=== PATIENT | female | born 1940 | race Caucasian/White ===

== ENCOUNTER 2017-07-31 08:48 | Day surgery (SDC) | payer OTHER, BC ==
[2017-07-30 11:41] VITALS: BMI 31.9
[2017-07-31] MEDS ORDERED: PROPOFOL 20 ML ONE ×2 (09:29)
[2017-07-31 10:28] VITALS: TEMP 97.6
[2017-07-31 11:24] VITALS: BP 117/68; PULSE 62
--- NOTE | 2017-08-02 15:44 | PATH ---
Surgical Pathology Report Patient Name: TREY BASS [facility]. Rec. #: [id number] /Age/Gender: 1940 (Age: 77) / F Account: [id number] Location: U-ENDOSCOPY Taken: 07/31/2017 Received: 07/31/2017 Reported: 08/02/2017 Physicians: Abida Villeda M.D. Specimen(s) Received A: BX POLYP RECTUM B: BX POLYP CECUM C: BX POLYPS SIGMOID Clinical History Preoperative diagnosis: Screening, colon polyps surveillance Postoperative diagnosis: Colon polyps, diverticulosis Final Diagnosis A. COLON, RECTUM, BIOPSY: HYPERPLASTIC POLYP. B. COLON, CECUM, BIOPSY: TUBULAR ADENOMA. C. COLON, SIGMOID, BIOPSY: HYPERPLASTIC POLYP. Electronically Signed Ganesh Dumont M.D. Gross Description A. Received in formalin, labeled "biopsy polyps rectum" are 3 torres, irregular portions of soft tissue averaging 0.2 cm. in greatest dimension. The specimens are submitted in toto in one cassette. B. Received in formalin, labeled "biopsy cecum polyp" are 2 torres, irregular portions of soft tissue averaging 0.4 cm. in greatest dimension. The specimens are submitted in toto in one cassette. C. Received in formalin, labeled "biopsy polyp sigmoid" are 3 torres, irregular portions of soft tissue averaging 0.3 cm. in greatest dimension. The specimens are submitted in toto in one cassette. /07/31/2017 saudi07/31/2017
== END 2017-07-31 11:28 | disposition home or self-care (01) ==
LOC: JASU-ENDO 08:48
PROVIDERS: ATTEND Internal Medicine Gastroenterology
PROC: 0DBE8ZX Excision of Large Intestine, Via Natural or Artificial Opening Endoscopic, Diagnostic (ICD-10-PCS; 2017-07-31)
PROC: 0DBP8ZX Excision of Rectum, Via Natural or Artificial Opening Endoscopic, Diagnostic (ICD-10-PCS; principal; 2017-07-31 09:45)
DX: Z86.010 Personal history of colon polyps (principal); K59.00 Constipation, unspecified; K63.5 Polyp of colon; K62.1 Rectal polyp; K57.30 Diverticulosis of large intestine without perforation or abscess without bleeding
CPT/HCPCS: 88305-TC

== ENCOUNTER 2019-03-29 15:29 | Emergency (ER) | payer OTHER, BC ==
[2019-03-29 15:50] VITALS: BP 134/82; PULSE 84; TEMP 98; BMI 33.5
--- NOTE | 2019-03-29 16:11 | PDOC ---
History of Present Illness - General Chief Complaint: Pain, Acute Stated Complaint: SHOULDER INJURY Time Seen by Provider: 03/29/19 16:11 - History of Present Illness Initial Comments: 03/29/19 16:19 78yo F hx HTN BIBA with L shoulder pain s/p mechanical fall from standing onto L shoulder at approx 1500. Pt was in [place] prior to fall. Pt was at [place] and went to sit on swivel chair and it swiveled in other direction and pt fell onto L shoulder "hard", witnessed by friend. Pt immediately felt L shoulder and upper arm pain, worse with movement, constant, unchanging, sharp type, severe, has not tried any pain medicatons, was unable to stand up on own due to shoulder pain. Denies FOOSH, head injury, neck injury or pain, back injury or pain, other injuries, wrist pain, elbow pain, hand or finger pain, CP, palpitations, dizziness, vertigo, confusion, disorientation, syncope, seizure- like movements, incontinence, tongue-biting, LOC, hx frequent falls, blood thinner use, numbness, tingling, weakness, fever, chills, fatigue, headache, vision changes, shortness of breath, cough, leg swelling, abdominal pain, blood in stool, diarrhea, constipation, nausea, vomiting, dysuria, hematuria. Past History - Past Medical History Allergies/Adverse Reactions: Allergies Allergy/AdvReac Type Severity Reaction Status Date / Time No Known Allergies Allergy Verified 03/29/19 15:49 Home Medications: Ambulatory Orders Metoprolol Tartrate [Lopressor -] 25 mg PO DAILY 02/21/12 Olmesartan/Hydrochlorothiazide [Benicar Hct 40-25 mg Tablet] 1 each PO DAILY 22/06 Amlodipine Besylate [Norvasc -] 10 mg PO DAILY 07/30/17 Oxycodone HCl/Acetaminophen [Percocet 5-325 mg Tablet] 1 tab PO Q8H PRN #12 tablet MDD 3 tabs 03/29/19 Anemia: No Asthma: No Cancer: No Cardiac Disorders: No CVA: No COPD: No CHF: No Dementia: No Diabetes: No GI Disorders: Yes Disorders: No HTN: Yes Hypercholesterolemia: Yes Kidney Stones: Yes Liver Disease: No Seizures: No Thyroid Disease: Yes - Surgical History Abdominal Surgery: Yes (Tubal Ligation, LAPAROTOMY DUE TO HEMORRHAGE) Appendectomy: No Cardiac Surgery: No Cholecystectomy: No Lung Surgery: No Neurologic Surgery: No Orthopedic Surgery: Yes (HIP SURGERY LT) - Immunization History Immunization Up to Date: No - Psycho Social/Smoking Cessation Hx Smoking Status: No Smoking History: Unknown if ever smoked Have you smoked in the past 12 months: No Number of Cigarettes Smoked Daily: 0 If you are a former smoker, when did you quit?: 1967 Information on smoking cessation initiated: No Hx Alcohol Use: No Drug/Substance Use Hx: No Substance Use Type: None Hx Substance Use Treatment: No Review of Systems - Review of Systems Comments:: 03/29/19 16:19 Constitutional: Negative for chills, fever, fatigue, diaphoresis. HENT: Negative for sore throat, rhinorrhea, congestion. Eyes: Negative for visual disturbance. Respiratory: Negative for shortness of breath, cough, and wheezing. Cardiovascular: Negative for chest pain, palpitations, and leg swelling. Gastrointestinal: Negative for abdominal pain, blood in stool, constipation, diarrhea, nausea, and vomiting. Genitourinary: Negative for dysuria, flank pain, and hematuria. Musculoskeletal: Positive for L shoulder and humerus pain. Negative for myalgias , back pain, and neck pain. Skin: Negative for rash. Neurological: Negative for light-headedness, dizziness, vertigo, syncope, weakness, numbness and headaches. Psychiatric/Behavioral: Negative for behavioral problems and confusion. *Physical Exam - Vital Signs Last Vital Signs Temp Pulse Resp BP Pulse Ox 98.0 F 84 16 134/82 100 03/29/19 15:44 03/29/19 15:44 03/29/19 15:44 03/29/19 15:44 03/29/19 15:44 - Physical Exam Comments: 03/29/19 16:20 Gen: Alert, NAD, comfortable-appearing, L shoulder in sling HEENT: PERRL, EOMI, MMM, NCAT. No conjunctival pallor. Sclera are non-icteric. CV: Regular rate and rhythm. No murmurs, rubs, or gallops. PULM: No resp distress. CTAB, no wheezes, rales, or rhonchi. ABD: soft, NT/ND, no rebound tenderness or guarding, no CVA tenderness. BACK: No TTP of c/t/l-spine. No step-offs or deformities. MSK: No bony deformities of RUE/BLEs. 2+ pulses in all extremities. LUE: L shoulder in sling, 2+ pulses, <2 sec cap refill, sensation to light touch intact throughout, 5/5 strength and full ROM of digits and wrist, unable to move elbow or shoulder 2/2 pain, +TTP diffuse shoulder and humerus, + swelling of shoulder, +anterior displacement of humeral head. NEURO: AAOx3. PERRL. No gross CN deficits. Strength and sensation grossly intact throughout. EXTREMITIES: No cyanosis. No clubbing. No calf tenderness. PSYCH: Normal mood and thought pattern. SKIN: Warm and dry. Normal capillary refill. No rashes. No jaundice. Medical Decision Making - Medical Decision Making 03/29/19 16:19 78yo F hx HTN BIBA with L shoulder pain s/p mechanical fall from standing onto L shoulder at approx 1500. Hemodynamically stable, afebrile, neurologically intact, LUE neurovascularly intact but considerable pain and TTP of L shoulder and humerus diffusely, L shoulder appears swollen with anterior displacement of humeral head. Evaluate for fx and dislocation w/XRs. LUE neurovascularly intact; full ROM of L wrist and fingers; no TTP of L fingers, hand, wrist, forearm, or elbow; fell onto shoulder and not onto hand/wrist. Pt states definitely mechanical fall, witnessed by friend; no CP, palpitations, dizziness, confusion, seizure activity , or LOC concerning for syncope. No head injury. No neck or back pain or TTP, full ROM. - Tylenol and Morphine for pain - XR L shoulder/humerus/elbow - Dispo: likely d/c home w/ortho f/u pending w/u 03/29/19 17:43 XR reviewed. Appears L proximal humerus comminuted fracture. Pt requested Dr Simms because her daughter uses him. Paged Ortho Dr Simms. 03/29/19 18:07 Spoke with PA for [facility]. Recommend sling, discharge, ortho f/u tomorrow with Dr Newberry. Pt still in pain. Percocet and d/c with percocets. 03/29/19 18:19 Sling applied. Neurovascularly intact. Will dc home with ortho f/u. Return precautions given. Pt understands all dc instructions and all questions were answered. Discharge - Discharge Information Problems reviewed: Yes Clinical Impression/Diagnosis: Fracture of humerus, proximal, left, closed Condition: Improved Disposition: HOME - Admission No - Additional Discharge Information Prescriptions: Oxycodone HCl/Acetaminophen [Percocet 5-325 mg Tablet] 1 tab PO Q8H PRN #12 tablet MDD 3 tabs PRN Reason: Severe Pain - Follow up/Referral Referrals: Isaac Wong MD [Primary Care Provider] - Shawn Simms MD [Staff Physician] - - Patient Discharge Instructions Patient Printed Discharge Instructions: How to Use a Sling, DI for Shoulder Fracture Additional Instructions: You have been seen in the Emergency Department for your left shoulder injury and pain. Your X-ray shows a humerus fracture. We have consulted with Orthopedics and applied a sling. We have given you a referral to your requested Orthopedic Surgeon Dr Simms - call his office in the morning to make an appointment for tomorrow. We have prescribed you Percocet for the pain - take it as prescribed as needed. You can also take Tylenol as directed on the medication bottle, but do not exceed a total of 4g of Tylenol a day (remember that the percocet has some tylenol as well). Follow the RICE protocol to help with the healing process: R - Rest. Rest and protect the injured or sore area. Stop, change, or take a break from any activity that may be causing your pain or soreness. I - Ice. Cold will reduce pain and swelling. Apply an ice or cold pack right away to prevent or minimize swelling. Apply the ice or cold pack for 10 to 20 minutes, 3 or more times a day. After 48 to 72 hours, if swelling is gone, apply heat to the area that hurts. Do not apply ice or heat directly to the skin. Place a towel over the cold or heat pack before applying it to the skin. C - Compression. Keep the shoulder in a sling. Don't wrap it too tightly, because this can cause more swelling below the affected area. Loosen the sling if it gets too tight. Signs that the sling is too tight include numbness, tingling, increased pain, coolness, or swelling in the area below the bandage. E - Elevation. Elevate the injured or sore area on pillows while applying ice and anytime you are sitting or lying down. Try to keep the area at or above the level of your heart to help minimize swelling. Return to the ED immediately if you experience worsening pain not controlled by over the counter medications, numbness or tingling, weakness, fever, worsening swelling, or any other new or worsening symptom. - Post Discharge Activity
[2019-03-29] MEDS ORDERED: morphine CARPU-JECT 2 MG/1 ML DISP.SYRIN IM ONE (16:23)
[2019-03-29] MEDS ORDERED: ACETAMINOPHEN 500 MG TABLET (FP) PO ONE (16:24)
[2019-03-29] MEDS ORDERED: morphine SULFATE 4 MG/ML VIAL ONE (16:33)
[2019-03-29] MEDS ORDERED: ACETAMINOPHEN 325 MG TABLET (FP) ONE (17:23)
--- NOTE | 2019-03-29 18:11 | PDOC ---
Documentation entered by Reina Howard SCRIBE, acting as scribe for Maria Isabel Gaines MD. Maria Isabel Gaines MD: This documentation has been prepared by the Lee watson Nirvannie, SCRIBE, under my direction and personally reviewed by me in its entirety. I confirm that the documentation accurately reflects all work, treatment, procedures, and medical decision making performed by me. Attending Attestation - Resident Resident Name: Ronna Farmer - ED Attending Attestation I have performed the following: I have examined & evaluated the patient, The case was reviewed & discussed with the resident, I agree w/resident's findings & plan - HPI HPI: 03/29/19 17:25 The patient is a 78 year old female, with a significant past medical history of HTN, who presents to the emergency department s/p witnessed mechanical fall while attempting to sit on a chair at the [facility] with left shoulder pain. She denies any LOC, head/neck trauma, or change in strength/sensation. Allergies: NKDA Primary Care Physician: Dr. Wong - Physicial Exam PE: 03/29/19 17:33 WNWD 78 YO FEMALE looking younger than stated age head ncat neck no mid line cervical vertebral tenderness lungs cta b/l cvs [id number] abd no rebound,no guarding extremities ++deformed,tender left shoulder, good ulnar and radial pulses neuro axox3,ambulatory - Medical Decision Making 03/29/19 17:47 78 yo female was gambling at the [facility] and she want to sit down and the stool flipped over. -she has good pulses in her wrist,sensation is intact, deformed and painful shoulder radiograph reveals a comminuted fracture of left humeral head she requested Dr Vanegas and his service was contacted The ortho PA looked at the xray and the plan is to sling the arm and follow up w Dr Vanegas tomorrow
== END 2019-03-29 18:56 | disposition home or self-care (01) ==
LOC: JER 15:29
PROC: 3E023NZ Introduction of Analgesics, Hypnotics, Sedatives into Muscle, Percutaneous Approach (ICD-10-PCS; principal; 2019-03-29)
DX: S42.202A Unspecified fracture of upper end of left humerus, initial encounter for closed fracture (principal); W07.XXXA Fall from chair, initial encounter; Y93.89 Activity, other specified; Y92.59 Other trade areas as the place of occurrence of the external cause; Y99.8 Other external cause status; I10 Essential (primary) hypertension; E78.00 Pure hypercholesterolemia, unspecified; Z87.19 Personal history of other diseases of the digestive system
CPT/HCPCS: 73030-TC-LT-FY; 73070-TC-LT-FY; 96372; 99281-25

== ENCOUNTER 2019-04-03 11:29 | Inpatient (IN) | payer OTHER, BC ==
[2019-04-02 16:52] VITALS: BMI 33.1
[2019-04-03] MEDS ORDERED: MIDAZOLAM HCL 2 MG/2 ML SINGLE DOSE VIAL ONE ×2 (13:10)
--- NOTE | 2019-04-03 13:31 | HP ---
Satellite H - Chief Complaint Chief Complaint: left humerus fx - Past Medical History Allergies/Adverse Reactions: Allergies Allergy/AdvReac Type Severity Reaction Status Date / Time No Known Allergies Allergy Verified 04/02/19 16:57 - Current Medications Current Medications: Home Medications Medication Instructions Recorded Metoprolol Tartrate [Lopressor -] 25 mg PO DAILY 02/21/12 Olmesartan/Hydrochlorothiazide 1 each PO DAILY 02/21/12 [Benicar Hct 40-25 mg Tablet] Amlodipine Besylate [Norvasc -] 10 mg PO DAILY 07/30/17 Acetaminophen [Tylenol] 2 tab PO PRN 04/03/19 Oxycodone HCl/Acetaminophen 1 tab PO Q6H PRN #40 tablet MDD 6 04/03/19 [Percocet 5-325 mg Tablet] Satellite Physical Exam - Physical Examination Vital Signs: Vital Signs Period Temp Pulse Resp BP Sys/Gage Pulse Ox Last 24 Hr 98.6 F 80 20 144/86 96 General Appearance: Well Nourished, Well Developed, Alert & Oriented x3 ENT: Clear Lung: Normal air movement Heart: Regular rate & rhythm Extremities: Other (left shoulder- + swelling, + ecchymosis, + ttp, decr rom, nvi, xrays show displaced proximal humerus fx) Neurological: Intact, Alert, Oriented Satellite Impression/Plan - Impression/Plan Impression: left proximal humerus fx Operative Procedure: left reverse TSA Date to be Performed: 04/03/19
[2019-04-03] MEDS ORDERED: PROPOFOL 20 ML ONE ×2 (13:52→14:02)
[2019-04-03] MEDS ORDERED: LIDOCAINE HCL/PF 2% SDV 5ML VIAL ONE (13:52)
[2019-04-03] MEDS ORDERED: ROCURONIUM BROMIDE 50 MG/5 ML SYRINGE ONE ×2 (13:53→14:03)
[2019-04-03] MEDS ORDERED: PHENYLEPHRINE HCL 10 MG/1 ML SINGLE DOSE VIAL ONE (14:10)
[2019-04-03] MEDS ORDERED: ceFAZolin SODIUM 1 GM VIAL ONE ×2 (14:10→14:16)
[2019-04-03] MEDS ORDERED: ceFAZolin SODIUM 1 GM VIAL IVPB ONE (14:12)
[2019-04-03] MEDS ORDERED: oxyCODONE HCL 5 MG TABLET PO PRN (14:59)
[2019-04-03] MEDS ORDERED: ACETAMINOPHEN 325 MG TABLET (FP) PO PRN (15:00)
[2019-04-03] MEDS ORDERED: EPHEDRINE SULFATE/0.9% NACL/PF 50 MG/10 ML SYRINGE NR ONE (15:53)
--- NOTE | 2019-04-03 16:09 | OP ---
Operative Note - Note: Operative Date: 04/03/19 ([facility]) Pre-Operative Diagnosis: left proximal humerus fx Operation: left reverse TSA, RCR Post-Operative Diagnosis: Same as Pre-op Surgeon: Shorty Sewell Progressive Care Manager: Shawn Simms) Anesthesia: General, Local Specimens Removed: bone fragments Estimated Blood Loss (mls): 200 Operative Report Dictated: Yes
[2019-04-03] MEDS ORDERED: NEOSTIGMINE METHYLSULFATE 0.5 MG/ML - 10 ML MDV ONE (16:19)
[2019-04-03] MEDS: ceFAZolin 2 GRAM PREMIX BAG IVPB SCH (22:25)
[2019-04-04] MEDS: ceFAZolin 2 GRAM PREMIX BAG IVPB SCH (05:45)
--- NOTE | 2019-04-04 07:03 | OP ---
DATE OF OPERATION: 04/03/2019 PREOPERATIVE DIAGNOSIS: Four-part head split, left proximal humerus fracture. POSTOPERATIVE DIAGNOSIS: Four-part head split, left proximal humerus fracture. PROCEDURE: Left reverse total shoulder replacement with open rotator cuff repair and biceps tenotomy. SURGEON: Edgar Clark MD FITNESS SPECIALIST: TRENTON Stanley ANESTHESIA: COMPLICATIONS: None. FLUID REPLACEMENT: 1500 mL INDICATIONS: After extensive preoperative discussions with the patient and her family, it was elected to go forward with surgery. She understands that we are doing a reverse total shoulder replacement, and she may not have complete function, range of motion, or strength. This may not relieve all of her pain. She may need extensive physical therapy. There is a lifelong risk of infection, need for revision, failure of surgery, rotator cuff re-tear, etc. The patient is a 78-year-old female with a preoperative diagnosis of a displaced 4-part proximal humerus and head split fracture. DESCRIPTION OF PROCEDURE: The patient was brought to the operating room. Peripheral IV place. IV sedation given. Left interscalene block was performed. LMA anesthesia was induced. She was placed into beach chair position with ample padding throughout. The left upper extremity was prepped and draped in the usual sterile fashion. The bony landmarks were marked out with a marking pen. A typical deltopectoral approach was marked out with a marking pen and the incision made with a No. 15 scalpel blade. Subcutaneous hemostasis was achieved with a Bovie cautery. Dissection done down to the deltopectoral interval. The fat and cephalic vein were identified and retracted in medial direction. Blunt dissection was done with my finger down to the anterior capsule. The subscapularis was already disattached with the lesser tuberosity. This was identified. A portion of the tuberosity removed but saved for later bone grafting and tagged with 2 FiberWire sutures. Next, the greater tuberosity was identified. A portion of bone was cut off of it also saved for bone graft. This was also tagged with FiberWire sutures. Because it was a head split, I was able to easily open book these 2 fracture fragments for exposure of the head, the glenoid, and the proximal humerus. The head was removed and morselized for later cancellous bone graft. The area was copiously irrigated and washed out. There was a large, jagged component to the proximal humerus, so I used an oscillating saw to do a provisional cut and have access to the glenoid. The glenoid labrum was removed with the Bovie and a Anton after pickle forceps were placed in for bony exposure. Overall exposure was quite good. 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 The [place] Accolade reverse total shoulder replacement glenoid guide was used. The pin put into the center position in a bicortical fashion. The hemispherical reamer was then used until we had the inferior cancellous bleeding smile. It all looked quite good. There was a small rim of bone that I removed with a rongeur. Next, we measured, pretacked, and put on the glenoid base plate with a standard, large, fully threaded 24-mm screw. It came down quite nicely. There was excellent bony fixation. Next, we put in 4 screws in the standard fashion, the posterior screw 16 mm, anterior screw 24 mm, superior screw 24 mm, inferior screw 32 mm. Again, we had excellent fixation of the glenoid baseplate and then in the standard Cabezas taper fashion put on the actual 32-mm hemispherical Glenosphere prosthesis. It all looked quite good. I tried to pull it off. I could not. It was quite stable. Next, we prepared the proximal humerus in the standard fashion 1st using canal finders, hand reamers, and then hand broaches up to a size 8. We then used a T handle to spread the phalanges, hold it in place. Then I actually added a little bit more height and retroversion so it was about 27 degrees and locked it into place. Put on 1st a 6- then an 8- then a 10-mm polyethylene trial. This was by far the most stable and was quite good. There was no shucking. Overall range of motion and stability were excellent. Next, the trials were all removed. A cortical cancellous bone plug was placed done the humeral shaft, knocked into place to the appropriate depth with the broach, and an actual porous coated Berenice Accolade fracture stem was cemented into place with excellent pressurization of the cement in a slightly proud position of about 2-3 mm and a slight more retroversion to about 27 to 26 degrees. Held it into place in the appropriate version and height until the cement dried. We then used a small osteotome to remove some excess cement. The area was copiously irrigated and washed out. Overall, looked quite good. I then trialed a 4 baseplate and 10-mm polyethylene trial, and it had excellent stability, excellent range of motion in all planes, and the appropriate amount of shucking. I then put on an actual cup prosthesis of 4 and 10 mm, knocked it into place as a Cabezas taper, reduced it again, checked stability. It was excellent. I then closed the greater to the lesser tuberosity over the prosthesis using multiple FiberWire sutures. It covered about 80% of the prosthesis and overall looked quite good. I put in some cancellous bone graft laterally, repaired the deltoid over this, irrigated the superficial layer, closed the deep dermal layer with 0 Vicryl suture, and closed the skin with a running subcuticular 4-0 V-Lock suture. The area was then washed and dried, covered with a SwiftSet glue and a 6-inch Aquacel dressing. The patient was put into a sling. Total operative time was about an hour and 45 minutes. There were no complications during the case. The patient tolerated the procedure well. Blood loss was at most 250 mL. EDGAR CLARK M.D. [id number]
--- NOTE | 2019-04-04 08:59 | PN ---
Progress Note, Physician Chief Complaint: left humerus fx History of Present Illness: Operative Date: 04/03/19 ([facility]) Pre-Operative Diagnosis: left proximal humerus fx Operation: left reverse TSA, RCR Post-Operative Diagnosis: Same as Pre-op Surgeon: Shorty Sewell - Current Medication List Current Medications: Active Medications Acetaminophen (Tylenol -) 325 mg PO Q8H PRN PRN Reason: PAIN 6-10 Last Admin: 04/04/19 05:47 Dose: 325 mg Amlodipine Besylate (Norvasc -) 10 mg PO DAILY RADHA Hydrochlorothiazide (Hctz -) 25 mg PO DAILY RADHA Metoprolol Tartrate (Lopressor -) 25 mg PO DAILY RADHA Oxycodone HCl (Roxicodone -) 5 mg PO Q8H PRN PRN Reason: PAIN 6-10 Last Admin: 04/04/19 05:45 Dose: 5 mg Valsartan (Diovan -) 320 mg PO DAILY RADHA - Objective Vital Signs: Vital Signs Temperature 99.5 F 04/04/19 05:52 Pulse Rate 73 04/04/19 05:52 Respiratory Rate 20 04/04/19 05:52 Blood Pressure 141/79 04/04/19 05:52 O2 Sat by Pulse Oximetry (%) 96 04/03/19 18:33 Constitutional: Yes: Well Nourished, No Distress, Calm Cardiovascular: Yes: Regular Rate and Rhythm Respiratory: Yes: Regular Gastrointestinal: Yes: Normal Bowel Sounds, Soft Genitourinary: Yes: WNL Musculoskeletal: Yes: Other (Left arm sling) Extremities: Yes: WNL Edema: No Peripheral Pulses WNL: Yes Neurological: Yes: Alert, Oriented Psychiatric: Yes: Alert, Oriented Problem List - Problems (1) Fracture of humerus, proximal, left, closed Assessment/Plan: -Seen by orthopedic surgery -Pain management -Physical therapy Problems reviewed: Yes Code(s): S42.A - UNSP FRACTURE OF UPPER END OF LEFT HUMERUS, INIT FOR CLOS FX (2) Leukocytosis Assessment/Plan: -likely post inflammatory -Repeat labs in AM Problems reviewed: Yes Code(s): D72.829 - ELEVATED WHITE BLOOD CELL COUNT, UNSPECIFIED Assessment/Plan See problem list Spoke to daughter at bedside
[2019-04-04] MEDS: METOPROLOL TARTRATE 25 MG TABLET (FP) PO SCH (09:24)
[2019-04-04] MEDS: amLODIPine BESYLATE 10 MG TABLET (FP) PO SCH (09:24)
[2019-04-04] MEDS: HYDROCHLOROTHIAZIDE 25 MG TABLET (FP) PO SCH (09:24)
[2019-04-04] MEDS: VALSARTAN 160 MG TABLET (UD) PO SCH (09:24)
[2019-04-04] MEDS ORDERED: PATIENT'S OWN MEDICATION (NON-FORMULARY) (Olmesartan/Hydrochlorothiazide [Benicar Hct 40-2 PO SCH (10:00)
[2019-04-04 11:37] LABS: BASO % 0.2 % (0-2.0); HEMATOCRIT 30.8 % (32.4-45.2); HEMOGLOBIN 10.3 GM/dL (10.7-15.3); LYMPH % 4.7 % (8-40); MCH 32.5 pg (25.7-33.7); MCHC 33.4 g/dl (32.0-36.0); MEAN CELL VOLUME 97.1 fl (80-96); MEAN PLT VOLUME 7.7 fl (7.5-11.1); MONO % 9.5 % (3.8-10.2); NEUT % 85.6 % (42.8-82.8); PLATELET COUNT 228 K/MM3 (134-434); RBC 3.18 M/mm3 (3.60-5.2); RDW 13.9 % (11.6-15.6); WHITE BLOOD COUNT 11.2 K/mm3 (4.0-10.0)
[2019-04-04 12:08] LABS: ALBUMIN 2.6 g/dl (3.4-5.0); BILIRUBIN,TOTAL 0.5 mg/dL (0.2-1); BLOOD UREA NITROGEN 27.4 mg/dL (7-18); CALCIUM 8.4 mg/dL (8.5-10.1); CREATININE 0.8 mg/dL (0.55-1.3); POTASSIUM 3.5 mmol/L (3.5-5.1); TOT PROT 5.4 g/dl (6.4-8.2)
[2019-04-04] MEDS ORDERED: ACETAMINOPHEN 325 MG TABLET (FP) PO PRN (12:56)
[2019-04-04] MEDS: oxyCODONE HCL 5 MG TABLET PO PRN ×2 (13:10→20:02)
[2019-04-05 02:54] VITALS: BP 143/85; PULSE 87; TEMP 99.3
--- NOTE | 2019-04-05 07:06 | PN ---
Progress Note, Physician Chief Complaint: s/p left total shoulder replacement under general anesthesia History of Present Illness: interscalene block for post op pain control, post op day one - Current Medication List Current Medications: Active Medications Acetaminophen (Tylenol -) 325 mg PO Q6H PRN PRN Reason: PAIN 6-10 Last Admin: 04/04/19 13:10 Dose: 325 mg Amlodipine Besylate (Norvasc -) 10 mg PO DAILY [facility] Last Admin: 04/04/19 09:24 Dose: 10 mg Hydrochlorothiazide (Hctz -) 25 mg PO DAILY [facility] Last Admin: 04/04/19 09:24 Dose: 25 mg Metoprolol Tartrate (Lopressor -) 25 mg PO DAILY [facility] Last Admin: 04/04/19 09:24 Dose: 25 mg Oxycodone HCl (Roxicodone -) 5 mg PO Q6H PRN PRN Reason: PAIN 6-10 Last Admin: 04/04/19 20:02 Dose: 5 mg Valsartan (Diovan -) 320 mg PO DAILY [facility] Last Admin: 04/04/19 09:24 Dose: 320 mg - Objective Vital Signs: Vital Signs Temperature 99.3 F 04/05/19 05:55 Pulse Rate 87 04/05/19 05:55 Respiratory Rate 20 04/05/19 05:55 Blood Pressure 143/85 04/05/19 05:55 O2 Sat by Pulse Oximetry (%) 98 04/04/19 21:00 Constitutional: Yes: Well Nourished Cardiovascular: Yes: WNL Respiratory: Yes: WNL Gastrointestinal: Yes: WNL Labs: CBC, BMP 04/04/19 11:05 04/04/19 11:05 Assessment/Plan Pain controlled overnight, increased during the day, helped by analgesics, no adverse anesthetic complications, dept of anesthesia will sign off care at this time
[2019-04-05 08:12] LABS: BASO % 0.2 % (0-2.0); EOS % 0.3 % (0-4.5); HEMATOCRIT 29.7 % (32.4-45.2); HEMOGLOBIN 10.3 GM/dL (10.7-15.3); LYMPH % 8.8 % (8-40); MCH 33.2 pg (25.7-33.7); MCHC 34.6 g/dl (32.0-36.0); MEAN CELL VOLUME 95.7 fl (80-96); MEAN PLT VOLUME 7.6 fl (7.5-11.1); MONO % 8.9 % (3.8-10.2); NEUT % 81.8 % (42.8-82.8); PLATELET COUNT 219 K/MM3 (134-434); RBC 3.11 M/mm3 (3.60-5.2); RDW 14.1 % (11.6-15.6); WHITE BLOOD COUNT 9.5 K/mm3 (4.0-10.0)
[2019-04-05] MEDS: METOPROLOL TARTRATE 25 MG TABLET (FP) PO SCH (09:41)
[2019-04-05] MEDS: amLODIPine BESYLATE 10 MG TABLET (FP) PO SCH (11:39)
[2019-04-05] MEDS: VALSARTAN 160 MG TABLET (UD) PO SCH (11:39)
[2019-04-05] MEDS: HYDROCHLOROTHIAZIDE 25 MG TABLET (FP) PO SCH (11:39)
== END 2019-04-05 12:38 | disposition home or self-care (01) | DRG 483 ==
LOC: JSAMEDAYSX 11:29 → EDSTATUS 13:30 → J6S 18:42
PROVIDERS: ADMIT Orthopaedic Surgery; ATTEND Orthopaedic Surgery
PROC: 0LQ20ZZ Repair Left Shoulder Tendon, Open Approach (ICD-10-PCS; 2019-04-03)
PROC: 0L820ZZ Division of Left Shoulder Tendon, Open Approach (ICD-10-PCS; 2019-04-03)
PROC: 0RPK0JZ Removal of Synthetic Substitute from Left Shoulder Joint, Open Approach (ICD-10-PCS; 2019-04-03)
PROC: 0RRK0JZ Replacement of Left Shoulder Joint with Synthetic Substitute, Open Approach (ICD-10-PCS; principal; 2019-04-03 13:30)
DX: S42.292A Other displaced fracture of upper end of left humerus, initial encounter for closed fracture (principal); D72.829 Elevated white blood cell count, unspecified; I10 Essential (primary) hypertension; K21.9 Gastro-esophageal reflux disease without esophagitis; E66.9 Obesity, unspecified; Z68.33 Body mass index [BMI] 33.0-33.9, adult; W18.39XA Other fall on same level, initial encounter; Y92.89 Other specified places as the place of occurrence of the external cause
CPT/HCPCS: 36415; 73030-TC-LT-FY; 80053; 85025; 86850; 86900; 86901; 94760

== ENCOUNTER 2023-03-19 17:46 | Emergency (ER) | payer OTHER, BC ==
[2023-03-19 17:59] VITALS: PULSE 84; RESP 18; TEMP 98.2; BMI 32.4
[2023-03-19] MEDS ORDERED: ACETAMINOPHEN 325 MG TABLET (FP) PO ONE (21:18)
[2023-03-19] MEDS ORDERED: ACETAMINOPHEN 325 MG TABLET (FP) ONE (21:20)
[2023-03-19 22:20] VITALS: BP 123/68
[2023-03-19] MEDS ORDERED: LIDOCAINE HCL 2% (50ML VIAL) SQ ONE (22:57)
[2023-03-19] MEDS ORDERED: DIPHTH,PERTUSS(ACELL),TET 0.5 ML DISP.SYRIN IM ONE ×2 (23:05→23:07)
[2023-03-19] MEDS ORDERED: LIDOCAINE HCL 2% (20ML MULTI-DOSE VIAL) ONE (23:06)
== END 2023-03-20 02:27 | disposition home or self-care (01) ==
LOC: JER 17:46
PROC: 0HQ1XZZ Repair Face Skin, External Approach (ICD-10-PCS; principal; 2023-03-19)
PROC: 2W3CX1Z Immobilization of Right Lower Arm using Splint (ICD-10-PCS; 2023-03-19)
PROC: 3E0234Z Introduction of Serum, Toxoid and Vaccine into Muscle, Percutaneous Approach (ICD-10-PCS; 2023-03-19)
DX: S52.571A Other intraarticular fracture of lower end of right radius, initial encounter for closed fracture (principal); S52.601A Unspecified fracture of lower end of right ulna, initial encounter for closed fracture; S01.81XA Laceration without foreign body of other part of head, initial encounter; S01.111A Laceration without foreign body of right eyelid and periocular area, initial encounter
CPT/HCPCS: 12013; 29125; 70450-TC; 70486-TC; 73090-TC-RT-FY; 73110-TC-RT-FY; 90471; 90715; 93005; 93010; 99284-25